=== PATIENT | female | born 1945 | race Caucasian/White ===

== ENCOUNTER → 2016-06-08 | Outpatient (CLI) | payer MEDICARE, OTHER ==
[~2016-06-08] MED LIST: ASPI-587 PO; ASPI81TA19 GT; Aspirin PO; Atorvastatin Calcium PO; CEFD300C PO; CLPD75T PO; FRS325T PO; LISI5TAB14 PO; METO25TA2 PO; PNT40TEC PO
--- OUTSIDE RECORDS SUMMARY | 2016-06-08 09:53 | XMS REPORT | Continuity of Care Document ---
Author Author [facility] Organization [facility] Address Unknown Phone Unavailable Care Team Providers Care Steel Spar Operator Name Role Phone PIEDAD ARTHUR MD PCP Insurance Providers Payer Name Policy Number Subscriber Name Relationship Wps Medicare [id number] Lb Colon 18 Self / Same As Patient For Life [id number] Anshu Colon 01 Advance Directives Directive Response Recorded Date/Time Advance Directives No 11/24/14 7:02am Health Care Power of Coke Inspector Y GUILHERME KELLY, 11/24/14 7:02am Organ Donor Yes 11/24/14 7:02am Resuscitation Status Full Code 11/24/14 7:02am Problems Medical Problems Problem Onset Date Status Anemia 10/05/2014 Active Pericardial effusion 11/25/2014 Active Medications Medication Dose Route Sig Days/Qty Instructions Order Date Discontinued Date Status Aspirin 81 Mg PO DAILY 09/29/14 10/05/14 Discontinued [Aspirin] 81 Mg PO DAILY 100 Qty 10/05/14 10/05/14 Discontinued [Atorvastatin Calcium] 80 Mg PO BEDTIME 30 Qty 10/05/14 Active Clopidogrel Bisulfate 75 Mg PO DAILY 30 Qty 10/05/14 Active Ferrous Sulfate 325 Mg PO TWICE A DAY WITH MEALS 100 Qty 10/05/14 Active Lisinopril (Lisinopril 5mg) 5 Mg PO DAILY 30 Qty 10/05/14 Active Metoprolol Tartrate 25 Mg PO TWICE A DAY 60 Qty 10/05/14 Active Pantoprazole Sod 40 Mg PO BID@,17 60 Qty 10/05/14 Active Aspirin 81 Mg GT DAILY 100 Qty 10/05/14 Active Cefdinir 300 Mg PO TWICE A DAY 20 Qty 11/25/14 Active Social History Social History Problem Response Recorded Date/Time Alcohol Use Denies Use 09/29/2014 8:52am Recreational Drug Use No 09/29/2014 8:25am Recent Foreign Travel No 11/24/2014 7:02am Smoking Status Never a Smoker 11/24/2014 7:02am Do you dip or chew tobacco? No 11/24/2014 7:02am Query Response Start Date Stop Date Smoking Status Never a Smoker 09/29/2006 Hospital Discharge Instructions No hospital discharge instructions. Plan of Care No plan of care. Functional Status Query Response Date Recorded Comprehension Ability Understands Concepts November 25, 2014 8:00am Allergies, Adverse Reactions, Alerts Allergen Type Severity Reaction Status Last Updated No Known Drug Allergies Active 09/29/14 Immunizations Name Given Type Date of Pneumonia Vaccine 09/09/14 Historical Vital Signs Acute Vital Signs Vital Response Date/Time Temperature (Fahrenheit) 98.3 degrees F (97.6 - 99.5) Temperature (Calculated Celsius) 36.53261 degrees C (36.4 - 37.5) Temperature Source Temporal Pulse Rate (adult) 68 bpm (60 - 90) Respiratory Rate 24 bpm (12 - 24) O2 Sat by Pulse Oximetry 98 % (88 - 100) Blood Pressure 110/58 mm Hg Pain Pain Intensity 2 Height (Feet) 5 feet Height (Inches) 1.00 inches Height (Calculated Centimeters) 154.100397 cm Weight (Pounds) 109 pounds Weight (Calculated Grams) 30410.569 gm Weight (Calculated Kilograms) 49.507040 kilograms Calculated BMI 20.59 Results Laboratory Results Test Name Result Units Flags Reference Collection Date/Time Result Date/ Time Comments White Blood Count 2.2 10^3/uL L 4.3-11.0 10/31/2014 10:14am 10/31/2014 10 :22am Red Blood Count 4.54 10^6/uL 4.35-5.85 10/31/2014 10:14am 10/31/2014 10 :22am Hemoglobin 12.1 G/DL 11.5-16.0 10/31/2014 10:10/31/2014 10:22am Hematocrit 38 % 35-52 10/31/2014 10:10/31/2014 10:22am Mean Corpuscular Volume 83 FL 80-99 10/31/2014 10:10/31/2014 10: 22am Mean Corpuscular Hemoglobin 27 PG 25-34 10/31/2014 10:14am 10/31/2014 10:22am Mean Corpuscular Hemoglobin Concent 32 G/DL 32-36 10/31/2014 10:14 10:22am Red Cell Distribution Width 17.8 % H 10.0-14.5 10/31/2014 10:2014 10:22am Platelet Count 190 10^3/uL 130-400 10/31/2014 10:10/31/2014 10: 22am Mean Platelet Volume 11.9 FL H 7.4-10.4 10/31/2014 10:am 10/31/2014 10: 22am Neutrophils (%) (Auto) 46 % 42-75 10/31/2014 10:10/31/2014 10: 22am Lymphocytes (%) (Auto) 35 % 12-44 10/31/2014 10:10/31/2014 10: 22am Monocytes (%) (Auto) 17 % H 0-12 10/31/2014 10:10/31/2014 10:22am Eosinophils (%) (Auto) 1 % 0-10 10/31/2014 10:10/31/2014 10:22am Basophils (%) (Auto) 2 % 0-10 10/31/2014 10:10/31/2014 10:22am Neutrophils # (Auto) 1.0 X 10^3 L 1.8-7.8 10/31/2014 10:10/31/2014 10:22am Lymphocytes # (Auto) 0.8 X 10^3 L 1.0-4.0 10/31/2014 10:10/31/2014 10:22am Monocytes # (Auto) 0.4 X 10^3 0.0-1.0 10/31/2014 10:14am 10/31/2014 10: 22am Eosinophils # (Auto) 0.0 10^3/uL 0.0-0.3 10/31/2014 10:1410/31/2014 10:22am Basophils # (Auto) 0.1 10^3/uL 0.0-0.1 10/31/2014 10:1410/31/2014 10 :22am Erythrocyte Sedimentation Rate 15 MM/HR 0-30 10/31/2014 10:14am 2014 1:29pm Absolute Reticulocyte Count 28 10e9/L 24-90 10/31/2014 10:142014 12:27pm Percent Reticulocyte Count 0.63 % 0.50-2.40 10/31/2014 10:142014 12:27pm Sodium Level 140 MMOL/L 135-145 10/31/2014 10:1410/31/2014 10:42am Potassium Level 4.4 MMOL/L 3.6-5.0 10/31/2014 10:1410/31/2014 10: 42am Chloride Level 106 MMOL/L 98-107 10/31/2014 10:1410/31/2014 10:42am Carbon Dioxide Level 27 MMOL/L 21-32 10/31/2014 10:1410/31/2014 10: 42am Blood Urea Nitrogen 21 MG/DL H 7-18 10/31/2014 10:1410/31/2014 10: 42am Creatinine 1.04 MG/DL 0.60-1.30 10/31/2014 10:1410/31/2014 10:42am BUN/Creatinine Ratio 20 10/31/2014 10:1410/31/2014 10:42am Estimat Glomerular Filtration Rate 52 10/31/2014 10:142014 10:42am GFR INTERPRETIVE DATA UNITS FOR ESTIMATED GFR (eGFR): mL/min/1.73 M2 REFERENCE RANGE FOR ESTIMATED GFR (eGFR) eGFR NORMAL eGFR >60 MODERATELY DECREASED eGFR 30-59 SEVERLY DECREASED eGFR 15-29 KIDNEY FAILURE <15 (OR DIALYSIS) Glucose Level 93 MG/DL 70-105 10/31/2014 10:1410/31/2014 10:42am Calcium Level 9.4 MG/DL 8.5-10.1 10/31/2014 10:1410/31/2014 10:42am Total Bilirubin 0.7 MG/DL 0.1-1.0 10/31/2014 10:1410/31/2014 10: 42am Alkaline Phosphatase 86 U/L 40-136 10/31/2014 10:10/31/2014 10: 42am Aspartate Amino Transf (AST/SGOT) 16 U/L 5-34 10/31/2014 10:142014 10:42am Alanine Aminotransferase (ALT/SGPT) 12 U/L 0-55 10/31/2014 10: 10:42am Lactate Dehydrogenase 197 U/L 125-220 10/31/2014 10:10/31/2014 12: 49pm Total Protein 7.0 G/DL 6.4-8.2 10/31/2014 10:10/31/2014 10:42am Albumin 3.9 G/DL 3.2-4.5 10/31/2014 10:10/31/2014 10:42am Ybhy-9-Hwslovlbkmqfw 2.55 H MG/L 0.00-1.85 10/31/2014 10:2014 7:37am Ferritin 203 H NG/ML 15-150 10/31/2014 10:11/03/2014 7:37am Folate 15.4 NG/ML 1.5-24.0 10/31/2014 10:11/03/2014 7:37am Iron Level 69 UG/DL 35-180 10/31/2014 10:11/03/2014 7:37am Transferrin % Saturation 21 % 15-50 10/31/2014 10:11/03/2014 7: 37am Total Iron Binding Capacity 332 UG/DL 280-380 10/31/2014 10:142014 7:37am TESTING PERFORMED BY: [facility] [id number] [place] [address] Vitamin B12 Level 395 PG/ML 200-1000 10/31/2014 10:11/03/2014 7: 37am White Blood Count 5.1 10^3/uL 4.3-11.0 11/25/2014 6:0511/25/2014 6: 29am Red Blood Count 3.36 10^6/uL L 4.35-5.85 11/25/2014 6:0511/25/2014 6: 29am Hemoglobin 9.4 G/DL #L 11.5-16.0 11/25/2014 6:05am 11/25/2014 6:29am Hematocrit 29 % L 35-52 11/25/2014 6:05am 11/25/2014 6:29am Mean Corpuscular Volume 87 FL 80-99 11/25/2014 6:05am 11/25/2014 6: 29am Mean Corpuscular Hemoglobin 28 PG 25-34 11/25/2014 6:05am 11/25/2014 6: 29am Mean Corpuscular Hemoglobin Concent 32 G/DL 32-36 11/25/2014 6:05am 6:29am Red Cell Distribution Width 18.1 % H 10.0-14.5 11/25/2014 6:05am 2014 6:29am Platelet Count 158 10^3/uL 130-400 11/25/2014 6:05am 11/25/2014 6:29am Mean Platelet Volume 11.4 FL H 7.4-10.4 11/25/2014 6:05am 11/25/2014 6: 29am Neutrophils (%) (Auto) 73 % 42-75 11/24/2014 7:11/24/2014 9:24am Lymphocytes (%) (Auto) 19 % 12-44 11/24/2014 7:11/24/2014 9:24am Monocytes (%) (Auto) 8 % 0-12 11/24/2014 7:11/24/2014 9:24am Eosinophils (%) (Auto) 0 % 0-10 11/24/2014 7:11/24/2014 9:24am Basophils (%) (Auto) 0 % 0-10 11/24/2014 7:11/24/2014 9:24am Neutrophils # (Auto) 4.2 X 10^3 1.8-7.8 11/24/2014 7:11/24/2014 9: 24am Lymphocytes # (Auto) 1.1 X 10^3 1.0-4.0 11/24/2014 7:11/24/2014 9: 24am Monocytes # (Auto) 0.5 X 10^3 0.0-1.0 11/24/2014 7:2411/24/2014 9: 24am Eosinophils # (Auto) 0.0 10^3/uL 0.0-0.3 11/24/2014 7:11/24/2014 9 :24am Basophils # (Auto) 0.0 10^3/uL 0.0-0.1 11/24/2014 7:2411/24/2014 9: 24am Prothrombin Time 12.4 SEC 12.2-14.7 11/24/2014 7:2411/24/2014 7: 46am INR Comment 0.9 0.8-1.4 11/24/2014 7:11/24/2014 7:46am INTERPRETIVE DATA SUGGESTED THERAPEUTIC RANGE FOR INR'S: VENOUS THROMBOSIS, PULMONARY EMBOLISM, OR PREVENTION OF SYSTEMIC EMBOLISM (EG. IN ATRIAL FIBRILLATION): 2.0 - 3.0 MECHANICAL PROSTHETIC HEART VALVES: 2.5 - 3.5* *NOTE: INR'S UP TO 4.5 MAY BE NECESSARY IN SELECTED GROUPS OF HIGH RISK PATIENTS. [employer] [place] [employer] OF CHEST PHYSICIANS CONSENSUS CONFERENCE ON ANTITHROMBOTIC THERAPY (2000). Activated Partial Thromboplast Time 31 SEC 24-35 11/24/2014 7: 7:46am Urine Color YELLOW 11/24/2014 7:11/24/2014 7:47am Urine Clarity CLEAR 11/24/2014 7:11/24/2014 7:47am Urine pH 5 5-9 11/24/2014 7:11/24/2014 7:47am Urine Specific Alpha 1.020 1.016-1.022 11/24/2014 7:2014 7:47am Urine Protein NEGATIVE NEGATIVE 11/24/2014 7:11/24/2014 7:47am Urine Glucose (UA) NEGATIVE NEGATIVE 11/24/2014 7:11/24/2014 7: 47am Urine RBC (Auto) 2+ * NEGATIVE 11/24/2014 7:11/24/2014 7:47am Urine Ketones NEGATIVE NEGATIVE 11/24/2014 7:11/24/2014 7:47am Urine Nitrite NEGATIVE NEGATIVE 11/24/2014 7:11/24/2014 7:47am Urine Bilirubin NEGATIVE NEGATIVE 11/24/2014 7:11/24/2014 7: 47am Urine Urobilinogen NORMAL MG/DL NORMAL 11/24/2014 7:1411/24/2014 7: 47am Urine Leukocyte Esterase 3+ * NEGATIVE 11/24/2014 7:1411/24/2014 7: 47am Urine RBC 5-10 /HPF * 11/24/2014 7:1411/24/2014 7:47am Urine WBC 25-50 /HPF * 11/24/2014 7:1411/24/2014 7:47am Urine Bacteria NEGATIVE /HPF 11/24/2014 7:1411/24/2014 7:47am Urine Squamous Epithelial Cells 0-2 /HPF 11/24/2014 7:142014 7:47am Urine Crystals NONE /LPF 11/24/2014 7:1411/24/2014 7:47am Urine Casts NONE /LPF 11/24/2014 7:1411/24/2014 7:47am Urine Mucus NEGATIVE /LPF 11/24/2014 7:1411/24/2014 7:47am Urine Culture Indicated YES 11/24/2014 7:11/24/2014 7:47am Sodium Level 140 MMOL/L 135-145 11/25/2014 6:0511/25/2014 6:44am Potassium Level 4.1 MMOL/L 3.6-5.0 11/25/2014 6:0511/25/2014 6:44am Chloride Level 115 MMOL/L H 98-107 11/25/2014 6:0511/25/2014 6:44am Carbon Dioxide Level 20 MMOL/L L 21-32 11/25/2014 6:0511/25/2014 6: 44am Blood Urea Nitrogen 9 MG/DL 7-18 11/25/2014 6:0511/25/2014 6:44am Creatinine 0.67 MG/DL 0.60-1.30 11/25/2014 6:0511/25/2014 6:44am BUN/Creatinine Ratio 13 11/25/2014 6:0511/25/2014 6:44am Estimat Glomerular Filtration Rate > 60 11/25/2014 6:052014 6:44am GFR INTERPRETIVE DATA UNITS FOR ESTIMATED GFR (eGFR): mL/min/1.73 M2 REFERENCE RANGE FOR ESTIMATED GFR (eGFR) eGFR NORMAL eGFR >60 MODERATELY DECREASED eGFR 30-59 SEVERLY DECREASED eGFR 15-29 KIDNEY FAILURE <15 (OR DIALYSIS) Glucose Level 87 MG/DL 70-105 11/25/2014 6:0511/25/2014 6:44am Calcium Level 7.8 MG/DL L 8.5-10.1 11/25/2014 6:11/25/2014 6:44am Total Bilirubin 0.6 MG/DL 0.1-1.0 11/25/2014 6:0511/25/2014 6:44am Alkaline Phosphatase 60 U/L 40-136 11/25/2014 6:0511/25/2014 6:44am Aspartate Amino Transf (AST/SGOT) 24 U/L 5-34 11/25/2014 6:052014 6:44am Alanine Aminotransferase (ALT/SGPT) 18 U/L 0-55 11/25/2014 6:0511/25 6:44am Total Protein 4.8 G/DL L 6.4-8.2 11/25/2014 6:11/25/2014 6:44am Albumin 2.9 G/DL L 3.2-4.5 11/25/2014 6:0511/25/2014 6:44am Triglycerides Level 144 MG/DL <150 11/24/2014 7:am 11/24/2014 7:52am Cholesterol Level 145 MG/DL < 200 11/24/2014 7:24am 11/24/2014 7:52am HDL Cholesterol 41 MG/DL 40-60 11/24/2014 7:24am 11/24/2014 7:52am LDL Cholesterol Direct 77 MG/DL 1-129 11/24/2014 7:24am 11/24/2014 7: 52am VLDL Cholesterol 29 MG/DL 5-40 11/24/2014 7:2411/24/2014 7:52am Microbiology Results Procedure Source Result Collection Date/Time Result Date/Time Urine Culture Urine, Clean Catch PROBABLE STAPH AUREUS 11/24/2014 7:14am 9:01am Procedures Procedure Status Date Provider(s) 48 hour Holter monitoring completed 11/10/14 SARAHY CHUA MD 48 hour Holter monitoring completed 11/10/14 SARAHY CHUA MD Tracing only of electrocardiogram completed 11/24/14 SARAHY CHUA MD Color Doppler echocardiography completed 11/24/14 SARAHY CHUA MD Tracing only of electrocardiogram completed 11/25/14 SARAHY CHUA MD Encounters Encounter Location Date/Time Departed Surgical Day [facility] Via [facility] 11/24/14 6:51am Registered Clinic Via [facility] 11/10/14 9:04am Registered Recurring Via [facility] 10/31/14 9:57am Recent Diagnosis Pericardial effusion
--- NOTE | 2016-06-09 08:46 | ECHOCARDIOGRAPHY REPORT ---
PROCEDURE PHYSICIAN: SARAHY CHUA DATE OF PROCEDURE: 06/08/2016 TWO DIMENSIONAL ECHOCARDIOGRAM REPORT PRIMARY PHYSICIAN: OTHER PHYSICIAN: REFERRING PHYSICIAN: Dr. Pauline Franklin ORDERING PHYSICIAN: INDICATION FOR THE PROCEDURE: Chest pain MEASUREMENTS DERIVED VALUES LV DIAMETER (LAX) NORMALS NORMALS Diastolic 4.1 (3.6-5.2) Eject. Fract. 60% (60%+/-6%) Systolic (2.3-3.9) Diastolic Vol. % Shortening (0.22-0.42) Systolic Vol. Aortic Root IVS THICKNESS Diastolic 1. (0.6-1.1) LVPW THICKNESS Diastolic 1. (0.6-1.1) LA DIAMETER Systolic 2.8 (2.1-3.7) FINDINGS: 1. Technical quality is good. 2. The left ventricle is normal in size with normal contractility. Systolic function appeared to be normal. Estimated ejection fraction 60%. 3. The left atrium is normal in size. No clot or thrombus were seen within the left atrium. 4. The right atrium and right ventricle are normal in size. No clot or thrombus were seen within the right side. 5. Mitral valve is normal in morphology with mild mitral regurgitation noted by color Doppler flow. No mitral valve prolapse. No mitral valve stenosis. 6. Aortic valve is trileaflet with normal opening and closing pattern. No significant aortic stenosis or regurgitation was seen. 7. Tricuspid valve is normal in morphology with mild tricuspid regurgitation noted by color Doppler flow. Doppler across tricuspid valve estimated pulmonary artery pressure of 16 plus right atrial pressure. 8. Pulmonic valve is functioning normally. 9. No pericardial effusion, no sufficient subcostal views were done on this study. CONCLUSION: 1. Normal left ventricular size and systolic function. Estimated ejection fraction 60%. 2. Mild mitral and tricuspid regurgitation. 3. Estimated pulmonary artery pressure of 25 mmHg. Job ID: [id number] Dictated Date: 06/08/2016 17:10:23 Commis Chef Date: 06/09/2016 08:42:08 / jacquie
== END ==
LOC: CARD 09:49
PROVIDERS: ATTEND Internal Medicine Cardiovascular Disease
DX: R00.1 Bradycardia, unspecified (principal); R07.89 Other chest pain; I25.10 Atherosclerotic heart disease of native coronary artery without angina pectoris; I34.0 Nonrheumatic mitral (valve) insufficiency; I51.9 Heart disease, unspecified; Z82.49 Family history of ischemic heart disease and other diseases of the circulatory system
CPT/HCPCS: 93306

== ENCOUNTER → 2016-06-13 | Outpatient (CLI) | payer MEDICARE, OTHER ==
[~2016-06-13] VITALS: Ht 154.9 cm; Wt 52.2 kg
[~2016-06-13] MED LIST changes: +CATHETER FLUSH 10 ML SYR IV PRN; +REGADENOSON 0.4 MG/5 ML SYR (LEXISCAN) IV ONE
--- OUTSIDE RECORDS SUMMARY | 2016-06-13 07:40 | XMS REPORT | Continuity of Care Document ---
Author Author [facility] Organization [facility] Address Unknown Phone Unavailable Care Team Providers Care Front End Application Developer Name Role Phone PIEDAD ARTHUR MD PCP Insurance Providers Payer Name Policy Number Subscriber Name Relationship Wps Medicare [id number] Lb Colon 18 Self / Same As Patient For Life [id number] Anshu Colon 01 Advance Directives Directive Response Recorded Date/Time Advance Directives No 11/24/14 7:02am Health Care Power of Quarter Section Ironer Y GUILHERME KELLY, 11/24/14 7:02am Organ Donor [...] F (97.6 - 99.5) Temperature (Calculated Celsius) 36.64024 degrees C (36.4 - 37.5) Temperature Source Temporal Pulse Rate (adult) 68 bpm (60 - 90) Respiratory Rate 24 bpm (12 - 24) O2 Sat by Pulse Oximetry 98 % (88 - 100) Blood Pressure 110/58 mm Hg Pain Pain Intensity 2 Height (Feet) 5 feet Height (Inches) 1.00 inches Height (Calculated Centimeters) 154.821468 cm Weight (Pounds) 109 pounds Weight (Calculated Grams) 77130.569 gm Weight (Calculated Kilograms) 49.650620 kilograms Calculated BMI 20.59 Results Laboratory Results [...] Albumin 3.9 G/DL 3.2-4.5 10/31/2014 10:10/31/2014 10:42am Pbov-5-Bavjcqsrkgnwv 2.55 H MG/L 0.00-1.85 10/31/2014 10:2014 7:37am Ferritin 203 H NG/ML 15-150 10/31/2014 10:11/03/2014 7:37am Folate 15.4 NG/ML 1.5-24.0 10/31/2014 10:11/03/2014 7:37am Iron Level 69 UG/DL 35-180 10/31/2014 10:11/03/2014 7:37am Transferrin % Saturation 21 % 15-50 10/31/2014 10:11/03/2014 7: 37am Total Iron Binding Capacity 332 UG/DL 280-380 10/31/2014 10:142014 7:37am TESTING PERFORMED BY: [facility] [id number] [place] [address] Vitamin B12 Level 395 PG/ML 200-1000 10/31/2014 [...] SELECTED GROUPS OF HIGH RISK PATIENTS. [employer] [place] COL[employer] OF CHEST PHYSICIANS CONSENSUS CONFERENCE ON ANTITHROMBOTIC THERAPY (2000). Activated Partial Thromboplast Time 31 SEC 24-35 11/24/2014 7: 7:46am Urine Color YELLOW 11/24/2014 7:11/24/2014 7:47am Urine Clarity CLEAR 11/24/2014 7:11/24/2014 7:47am Urine pH 5 5-9 11/24/2014 7:11/24/2014 7:47am Urine Specific [place] 1.020 1.016-1.022 11/24/2014 7:2014 7:47am Urine Protein [...] MD Tracing only of electrocardiogram completed 11/24/14 SARHAY CHUA MD Color Doppler echocardiography completed 11/24/14 SARAHY CHUA MD Tracing only of electrocardiogram completed 11/25/14 SARAHY CHUA MD Encounters Encounter Location Date/Time Departed Surgical Day Care Via [facility] 11/24/14 6:51am Registered Clinic Via [facility] 11/10/14 9:04am Registered Recurring Via [facility] 10/31/14 9:57am Recent Diagnosis Pericardial effusion
[2016-06-13 09:24] VITALS: BP 124/78
[2016-06-13 09:26] VITALS: BP 130/71
--- NOTE | 2016-06-14 09:59 | STRESS TEST ---
PROCEDURE PHYSICIAN: SARAHY CHUA LEXISCAN MYOVIEW STRESS TEST REPORT REFERRING PHYSICIAN: Pauline Avila MD DATE OF PROCEDURE: 06/13/2016 INDICATION: Chest pain. Baseline heart rate is 71, baseline blood pressure: 137/80. Baseline EKG: Sinus rhythm with no ischemic changes. SUMMARY: The patient was injected with 10.85 mCi of technetium 99 Myoview and the resting images were obtained. Then the patient received 0.4 mg of Lexiscan followed by 31 mCi of technetium 99 Myoview. Throughout the test, there were no EKG changes. The resting and stress images were reviewed and compared in the short axis, horizontal long axis, and vertical long axis views. Review of the images showed breast attenuation with reversible ischemia involving the mid to apical anterolateral and inferolateral wall. SSS is 9, SDS 4, TID value 1.18. On the gated images, the left ventricle appeared to be normal size with normal contractility. Calculated ejection fraction 56%. CONCLUSION: 1. The patient tolerated Lexiscan well. 2. Reversible ischemia involving the mid to apical anterolateral wall and inferolateral wall. 3. Normal left ventricular size with normal contractility. Calculated ejection fraction 56% Job ID: [id number] Dictated Date: 06/14/2016 08:45:00 Refrigeration Service Technician Date: 06/14/2016 09:53:59 / jacquie
== END ==
LOC: CARD 07:37
PROVIDERS: ATTEND Internal Medicine Cardiovascular Disease
DX: R00.1 Bradycardia, unspecified (principal); R07.89 Other chest pain; I25.10 Atherosclerotic heart disease of native coronary artery without angina pectoris; I34.0 Nonrheumatic mitral (valve) insufficiency; I51.9 Heart disease, unspecified; Z82.49 Family history of ischemic heart disease and other diseases of the circulatory system
CPT/HCPCS: 78452; 93017

== ENCOUNTER → 2018-06-21 | Outpatient (CLI) | payer MEDICARE, OTHER ==
[~2018-06-21] MED LIST changes: -CATHETER FLUSH 10 ML SYR IV PRN; -REGADENOSON 0.4 MG/5 ML SYR (LEXISCAN) IV ONE
== END ==
LOC: CARD 09:45
PROVIDERS: ATTEND Internal Medicine Cardiovascular Disease
DX: R07.89 Other chest pain (principal); I25.10 Atherosclerotic heart disease of native coronary artery without angina pectoris; I10 Essential (primary) hypertension; I34.0 Nonrheumatic mitral (valve) insufficiency; I49.5 Sick sinus syndrome; R00.1 Bradycardia, unspecified
CPT/HCPCS: 93306

== ENCOUNTER → 2018-06-25 | Outpatient (CLI) | payer MEDICARE, OTHER ==
[~2018-06-25] MED LIST changes: +CATHETER FLUSH 10 ML SYR IV PRN; +REGADENOSON 0.4 MG/5 ML SYR (LEXISCAN) IV ONE
[2018-06-25 10:14] VITALS: BP 109/83
--- NOTE | 2018-06-25 14:57 | STRESS TEST ---
DATE OF SERVICE: 06/25/2018 LEXISCAN MYOVIEW STRESS TEST Baseline heart rate is 73. Baseline blood pressure 120/54. Baseline EKG is sinus rhythm with no ischemic changes. In summary, the patient was injected with 10.03 mCi of technetium-99 Myoview and the resting images were obtained, then the patient received 0.4 mg of Lexiscan followed by 28.9 mCi of technetium-99 Myoview. Throughout the test, there were no EKG changes. The resting and stress images were reviewed and compared in the short axis, horizontal long axis, and vertical long axis views. Review of the images showed reversible ischemia involving the mid to apical inferolateral and anterolateral wall. SSS is 13. SDS 8. TID value 1.01. On the gated images, the left ventricle appeared to be normal size with normal contractility. Calculated ejection fraction 58%. CONCLUSION: 1. The patient tolerated Lexiscan well. 2. Reversible ischemia involving the mid to apical inferolateral and anterolateral wall. 3. Normal left ventricular size with normal contractility. Calculated ejection fraction is 58%. Job ID: [id number] DocumentID: [id number] Dictated Date: 06/25/2018 11:45:49 Audio Visual Director Date: 06/25/2018 14:15:03 Dictated By: SARAHY CHUA MD
== END ==
LOC: CARD 08:01
PROVIDERS: ATTEND Internal Medicine Cardiovascular Disease
DX: R07.89 Other chest pain (principal); I25.10 Atherosclerotic heart disease of native coronary artery without angina pectoris; I10 Essential (primary) hypertension; I34.0 Nonrheumatic mitral (valve) insufficiency; I49.5 Sick sinus syndrome; R00.1 Bradycardia, unspecified
CPT/HCPCS: 78452; 93017

== ENCOUNTER → 2020-04-21 | Outpatient (CLI) | payer MEDICARE, OTHER ==
[~2020-04-21] MED LIST changes: -CATHETER FLUSH 10 ML SYR IV PRN; -REGADENOSON 0.4 MG/5 ML SYR (LEXISCAN) IV ONE
--- NOTE | 2020-04-21 10:12 | Diagnostic Imaging Report ---
EXAMINATION: Right wrist at 9:38 AM. INDICATION: Fracture followup. TECHNIQUE/COMPARISON: Three views were obtained. There are no prior studies available for comparison. FINDINGS: There is a fiberglass cast in place. The presence of the cast does limit the sensitivity of this exam. There does appear to be an impacted slightly comminuted and slightly displaced fracture of the distal radial metaphysis. There may be a small amount of healing callus formation about the fracture site. There is also suggestion of a small avulsion fracture of the ulnar styloid. No other fracture or acute bony abnormality is noted. The soft tissues are unremarkable. IMPRESSION: 1. There is a healing slightly impacted slightly displaced comminuted fracture of the distal radial metaphysis. There also appears to be a small avulsion fracture of the ulnar styloid. There is no acute bony abnormality appreciated. 2. If previous studies are available, they would be helpful for comparison. Dictated by: Dictated on workstation # [id number]
== END ==
LOC: RAD FS 09:23
PROVIDERS: ATTEND Nurse Practitioner
DX: S52.571D Other intraarticular fracture of lower end of right radius, subsequent encounter for closed fracture with routine healing (principal); X58.XXXD Exposure to other specified factors, subsequent encounter
CPT/HCPCS: 73110

== ENCOUNTER → 2020-05-05 | Outpatient (CLI) | payer MEDICARE, OTHER ==
--- NOTE | 2020-05-05 09:17 | Diagnostic Imaging Report ---
INDICATION: Followup right wrist fracture. COMPARISON: 04/21/2020 TECHNIQUE: 2 radiographs of the right wrist dated 05/05/2020. FINDINGS: Cast material is identified overlying the right wrist which slightly limits evaluation of underlying osseous structures. Previously noted distal radial fracture is again identified, in stable alignment with minimal dorsal tilt. Increasing sclerosis and mild periosteal reaction is suggested. Small avulsion fracture of the ulnar styloid is again noted, appearing stable. No new fracture or dislocation. IMPRESSION: Mild interval healing of previously noted distal radial fracture with alignment remaining stable. Recommend continued radiographic followup. Persistent slightly distracted ulnar styloid avulsion fracture. Dictated by: Dictated on workstation # [id number]
== END ==
LOC: RAD FS 08:46
PROVIDERS: ATTEND Nurse Practitioner
DX: S52.571D Other intraarticular fracture of lower end of right radius, subsequent encounter for closed fracture with routine healing (principal)
CPT/HCPCS: 73100

== ENCOUNTER → 2020-05-19 | Outpatient (CLI) | payer MEDICARE, OTHER ==
--- NOTE | 2020-05-19 09:25 | Diagnostic Imaging Report ---
Right wrist at 9:00. Indication: Followup fracture AP and lateral views were obtained. In the interval since the prior exam of 05/05/2020 the fiberglass cast has been removed. The impacted slightly displaced healing fracture of the distal radius seen previously is again evident. The main fracture fragments are unchanged in alignment. The fracture line may still be partially visualized however. The avulsion fracture of the ulnar styloid seen previously is unchanged. There is no acute bony abnormality noted. Impression: 1. There is a healing impacted slightly displaced fracture of the distal radial metaphysis and avulsion fracture of the ulnar styloid. 2. There is no acute bony abnormality noted. 3. The fiberglass cast seen previously has been removed. Dictated by: Dictated on workstation # [id number]
== END ==
LOC: RAD FS 08:55
PROVIDERS: ATTEND Nurse Practitioner
DX: S52.571D Other intraarticular fracture of lower end of right radius, subsequent encounter for closed fracture with routine healing (principal); X58.XXXD Exposure to other specified factors, subsequent encounter
CPT/HCPCS: 73100

== ENCOUNTER → 2020-06-09 | Outpatient (CLI) | payer MEDICARE, OTHER ==
--- NOTE | 2020-06-09 09:12 | Diagnostic Imaging Report ---
Indication: Right wrist fracture, followup. Time of exam: 8:47 AM Correlation is made with prior radiograph from 05/19/2020. 2 views right wrist again demonstrate impacted comminuted fracture of the distal radius with intra-articular extension. There is continued sclerosis at the fracture site consistent with healing. Fracture lines remain partially visible. Ulnar styloid fracture remains ununited. Carpus and metacarpals are intact. Alignment is anatomic. Impression: Healing distal radius fracture when compared to exam from 05/19/2020. Fracture lines remain partially visible. Dictated by: Dictated on workstation # [id number]
== END ==
LOC: RAD FS 08:44
PROVIDERS: ATTEND Nurse Practitioner
DX: S52.571D Other intraarticular fracture of lower end of right radius, subsequent encounter for closed fracture with routine healing (principal); X58.XXXD Exposure to other specified factors, subsequent encounter
CPT/HCPCS: 73100

== ENCOUNTER → 2020-08-24 | Outpatient (CLI) | payer MEDICARE, OTHER | LOC: CARD 10:37 | PROVIDERS: ATTEND Internal Medicine Cardiovascular Disease | DX: I10 Essential (primary) hypertension (principal); I35.1 Nonrheumatic aortic (valve) insufficiency | CPT/HCPCS: 93306 ==

== ENCOUNTER → 2021-01-29 | Outpatient (CLI) | payer MEDICARE, OTHER ==
[2021-01-29 10:31] LABS: POTASSIUM 4.5 MMOL/L (3.6-5.0)
[2021-01-29 10:32] LABS: BILIRUBIN,TOTAL 0.8 MG/DL (0.1-1.0); CALCIUM 8.9 MG/DL (8.5-10.1); CREATININE SERUM 1.06 MG/DL (0.60-1.30); TOTAL PROTEIN 6.5 GM/DL (6.4-8.2)
== END ==
LOC: LAB FS 09:37
PROVIDERS: ATTEND Internal Medicine Cardiovascular Disease
DX: E78.2 Mixed hyperlipidemia (principal)
CPT/HCPCS: 36415; 80053; 80061

== ENCOUNTER → 2021-09-13 | Outpatient (CLI) | payer MEDICARE, OTHER ==
[~2021-09-13] VITALS: Ht 154 cm; Wt 53.0 kg
[~2021-09-13] MED LIST changes: +REGADENOSON 0.4 MG/5 ML SYR (LEXISCAN) IV ONE
[2021-09-13] MEDS: CATHETER FLUSH 10 ML SYR IVP PRN ×2 (08:24→09:25)
[2021-09-13 09:23] VITALS: BP 122/74
--- NOTE | 2021-09-13 11:31 | Cardiology Stress Test Report ---
Stress Test Report Date of Procedure/Referring: Date of Procedure: Sep 13, 2021 PCP Sarahy Bueno MD Admitting Physician Pauline Avila MD Indications: CP Baseline Heart Rate: 80 Baseline Blood Pressure: Blood Pressure Systolic: 122 Blood Pressure Diastolic: 74 Baseline Vitals Vital Signs Date Time Temp Pulse Resp B/P (MAP) Pulse Ox O2 Delivery O2 Flow Rate FiO2 09/13/21 09:23 80 16 122/74 (90) 98 Room Air Baseline EKG: Baseline EKG: NSR Summary After explaining the procedure to the patient, she signed a consent and then brought to the stress nuclear laboratory. Patient received 0.4 mg Lexiscan for stress test, ECG, heart rate and blood pressure were monitored continuously. Resting and stress dose of radio tracer were injected, imaging was acquired and reviewed in short axis, horizontal long axis and vertical long axis views. TID: 0.97 SSS: 12 SDS: 4 EF: 63 1. Patient tolerated Lexiscan well 2. Reversible ischemia involving the inferolateral wall and anterolateral wall 3. Normal left ventricular size, ejection fraction 63% SARAHY BUENO MD Sep 13, 2021 11:31
== END ==
LOC: CARD 08:04
PROVIDERS: ATTEND Internal Medicine Cardiovascular Disease
DX: I25.10 Atherosclerotic heart disease of native coronary artery without angina pectoris (principal); I10 Essential (primary) hypertension
CPT/HCPCS: 78452; 93017; A9502

== ENCOUNTER → 2022-10-13 | Outpatient (CLI) | payer MEDICARE, OTHER ==
[~2022-10-13] MED LIST changes: -REGADENOSON 0.4 MG/5 ML SYR (LEXISCAN) IV ONE
== END ==
LOC: CARDFS 09:30
PROVIDERS: ATTEND Physician Assistant
DX: I51.7 Cardiomegaly (principal); I35.1 Nonrheumatic aortic (valve) insufficiency
CPT/HCPCS: 93306